=== PATIENT | male | born 1960 | race Native Hawaiian/Other Pacific Islander ===

== ENCOUNTER 2022-11-22 11:58 | Emergency (ER) | payer OTHER ==
[~2022-11-22] VITALS: Ht 175.3 cm; Wt 83.9 kg
[2022-11-22 12:45] VITALS: BP 131/83; TEMP 98
== END 2022-11-22 12:45 | disposition home or self-care (01) ==
LOC: ED 11:58
DX: M25.511 Pain in right shoulder (principal)
CPT/HCPCS: 96372; 99283; J1100; J1885